=== PATIENT | female | born 1970 | race Hispanic/Latino ===

== ENCOUNTER 2021-07-07 12:06 | Outpatient (CLI) | payer BC | END 2021-07-07 12:07 | disposition home or self-care (01) | LOC: CSHRAD 12:06 | PROVIDERS: ATTEND Physician Assistant | DX: M54.2 Cervicalgia (principal); M47.812 Spondylosis without myelopathy or radiculopathy, cervical region | CPT/HCPCS: 72040 ==

== ENCOUNTER 2021-07-30 14:00 | Outpatient (CLI) | payer BC | END 2021-07-30 14:01 | disposition home or self-care (01) | LOC: CSHMAMMO 14:00 | PROVIDERS: ATTEND Physician Assistant | DX: Z12.31 Encounter for screening mammogram for malignant neoplasm of breast (principal) | CPT/HCPCS: 77063; 77067 ==

== ENCOUNTER 2021-08-04 12:44 | Outpatient (CLI) | payer BC | END 2021-08-04 12:45 | disposition home or self-care (01) | LOC: CSHMAMMO 12:44 | PROVIDERS: ATTEND Physician Assistant | DX: N63.20 Unspecified lump in the left breast, unspecified quadrant (principal) | CPT/HCPCS: G0279 ==